=== PATIENT | male | born 1990 | race Asian ===

== ENCOUNTER 2018-09-04 07:48 | Emergency (ER) | payer MEDICAID ==
[~2018-09-04] VITALS: Ht 160 cm; Wt 65.8 kg
[2018-09-04 08:28] VITALS: BP 124/84
[2018-09-04] MEDS ORDERED: ALBUTEROL SULF 2.5 MG/0.5ML(0.5%) NEB SOLN NEB ONE (09:45)
[2018-09-04] MEDS ORDERED: IPRATROPIUM BROM 0.5 MG/2.5ML INH SOL NEB ONE (09:45)
== END 2018-09-04 10:33 | disposition home or self-care (01) ==
LOC: EDBD 07:48 → ER 07:48 → EDSEX 07:48 → ER 10:33
DX: J39.2 Other diseases of pharynx (principal); T59.9 Toxic effect of unspecified gases, fumes and vapors
CPT/HCPCS: 71046